=== PATIENT | female | born 1950 | race Hispanic/Latino ===

== ENCOUNTER 2022-10-22 22:43 | Emergency (ER) | payer MEDICARE ==
[~2022-10-22] VITALS: Ht 157.5 cm; Wt 94.8 kg
[~2022-10-22 22:43] MED LIST: ATENOLOL25 MG PO; GABAPENTIN300 MG PO; LANSOPRAZOLE30 MG PO; MELOXICAM15 MG PO; METAXALONE800 MG PO; SPIRONOLACTONE50 MG PO; UREA TOP
[2022-10-23 00:58] LABS: BASOPHILS % 0.3 % (0.0-1.0); EOSINOPHILS # (AUTO) 0.1 (0.0-0.4); EOSINOPHILS % 1.1 % (0.0-6.0); HEMATOCRIT 39.2 % (34.2-44.1); HEMOGLOBIN 12.5 g/dL (12.0-16.0); LYMPHOCYTES % 13.1 % (18.0-39.1); MEAN CORPUSCULAR HEMOGLOBIN 28.7 pg (28-32); MEAN CORPUSCULAR HGB CONC 31.9 g/dL (31-35); MEAN CORPUSCULAR VOLUME 89.9 fL (81-99); MONOCYTES # (AUTO) 0.6 (0.2-0.8); MONOCYTES % 7.1 % (4.4-11.3); NEUTROPHILS # (AUTO) 6.2 (2.1-6.9); NEUTROPHILS % 78.1 % (38.7-80.0); PLATELET COUNT 216 x10e3/uL (140-360); RED BLOOD COUNT 4.36 x10e6/uL (3.6-5.1); RED CELL DISTRIBUTION WIDTH 14.5 % (11.7-14.4)
[2022-10-23 01:10] LABS: ALBUMIN 3.9 g/dL (3.5-5.0); ALBUMIN/GLOBULIN RATIO 1.3 (0.8-2.0); ANION GAP 11.8 mmol/L (8-16); CALCIUM 8.6 mg/dL (8.4-10.2); CREATININE, SERUM 0.79 mg/dL (0.57-1.11); POTASSIUM 3.8 mmol/L (3.5-5.1)
[2022-10-23] MEDS ORDERED: DICYCLOMINE HCL20 MG PO (01:38)
[2022-10-23] MEDS ORDERED: ONDANSETRON ODT4 MG SL (01:38)
[2022-10-23 02:12] VITALS: BP 129/84; PULSE 74; RESP 18; TEMP 99.3; O2SAT 99
== END 2022-10-23 02:00 | disposition home or self-care (01) ==
LOC: ER 22:50
DX: R50.9 Fever, unspecified (principal); A08.4 Viral intestinal infection, unspecified; R11.2 Nausea with vomiting, unspecified; R10.32 Left lower quadrant pain
CPT/HCPCS: 36415; 74176; 80053; 83690; 84484; 85025; 93005; 99284